=== PATIENT | male | born 1990 | race Asian ===

== ENCOUNTER 2019-12-22 05:58 | Observation (INO) | payer OTHER ==
[~2019-12-22] VITALS: Ht 172.7 cm; Wt 105.9 kg
[2019-12-22] MEDS ORDERED: ADVAIR (06:05)
[2019-12-22] MEDS ORDERED: ALBUTEROL MDI (06:05)
[2019-12-22] MEDS ORDERED: ZYRTEC (06:05)
--- NOTE | 2019-12-22 06:26 | NUR ---
rt to room
[2019-12-22] MEDS ORDERED: ALBUTEROL 0.5%, 20ML ONE (06:27)
--- NOTE | 2019-12-22 06:27 | NUR ---
THIS IS A 29 YO MALE COMING IN FOR ASTHMA EXACERBATION, WORSENING OVER PAST WEEK. PATIENT HAS AN ALBUTEROL INHALER AND ADVAIR, ALSO HAS NEBULIZER WITH NO RELIEF. NOTES NEW CAT AT HOME AND HAS IN THE PAST HAD SOME ISSUES REGARDING ALLERGY TO CATS. PATIENT PLACED ON 4L NC IN TRIAGE. PATIENT BACK TO ROOM. PLACED ON ALL MONITORING, PATIENT SINUS TACHY AT 116. SPO2 AT 94% ON 5L NC. INSPIRATORY AND EXPIRATORY WHEEZES AUSCULTATED THROUGHOUT, WORSE ON RIGHT SIDE. PATIENT SPEAKING IN 2-3 WORD SENTENCES. A&OX4. RT STARTED TREATMENT. PER RT, PATIENT TO BE ON CONTINUOUS NEBULIZER TREATMENT AT THIS TIME. CALL LIGHT IN REACH.
[2019-12-22] MEDS ORDERED: ALBUTEROL 0.5%, 20ML NPPBCONT PRN (06:30)
[2019-12-22] MEDS ORDERED: methylPREDNISolone SOD SUCC 125 MG/2 ML ONE (06:37)
--- NOTE | 2019-12-22 06:48 | NUR ---
PIV PLACED, IVF STARTED. PATIENT MEDICATED PER EMAR. POSTERIOR BREATH SOUNDS AUSCULTATED, BREATH SOUNDS HAVE LESS COARSE WHEEZES THROUGHOUT. PATIETN ON CONTINUOUS NEBULIZER TREATMENT
--- NOTE | 2019-12-22 06:54 | NUR ---
REPORT GIVEN TO COLBY EID. PLAN OF CARE DISCUSSED.
[2019-12-22] MEDS ORDERED: methylPREDNISolone SOD SUCC 125 MG/2 ML IVPush SCH (07:00)
[2019-12-22] MEDS ORDERED: SODIUM CHLORIDE 0.9% 1,000ML IVBOLUS ONE (07:00)
--- NOTE | 2019-12-22 07:22 | NUR ---
PT RESTING ON GURNING W/ NEBULIZER IN PLACE. TACHYCARDIC AND HYPERTENSIVE. ALL OTHER VS WDL. CALL LIGHT IN REACH. DENIES FURTHER NEEDS AT THIS TIME.
--- NOTE | 2019-12-22 07:37 | NUR ---
PT AMBULATED TO THE BATHROOM W/ A STEADY GAIT.
--- NOTE | 2019-12-22 08:45 | NUR ---
PT WAS 86% ON RA. PLACED ON 3L NC NOW 93%. NOTIFIED.
--- NOTE | 2019-12-22 09:20 | NUR ---
REPORT GIVEN TO ANGELICA BOWMAN. PT IS READY FOR TRANSPORT.
[2019-12-22] MEDS ORDERED: IBUPROFEN 600 MG TABLET PO PRN (09:30)
[2019-12-22] MEDS ORDERED: LABETALOL 5MG/ML, 20ML IVPush PRN ×2 (09:30→10:00)
[2019-12-22] MEDS ORDERED: hydrALAzine 20 MG/ML, 1ML IVPush PRN (09:30)
[2019-12-22] MEDS ORDERED: ONDANSETRON ODT 4 MG PO PRN (09:30)
[2019-12-22] MEDS ORDERED: ACETAMINOPHEN 325 MG TABLET PO PRN (09:30)
[2019-12-22 09:55] VITALS: BP 152/98
[2019-12-22] MEDS ORDERED: ALBUTEROL SULFATE 2.5MG/0.5ML NEB PRN (10:00)
[2019-12-22] MEDS ORDERED: ALBUTEROL SULFATE 2.5 MG/3 ML NPPB PRN (10:30)
[2019-12-22] MEDS: BUDESONIDE 0.5 MG/2 ML INHA INH SCH ×2 (10:30→19:44)
[2019-12-22] MEDS: CETIRIZINE 10 MG TABLET PO SCH (10:52)
[2019-12-22] MEDS ORDERED: ALBUTEROL SULFATE 2.5 MG/3 ML NPPB SCH (11:00)
[2019-12-22 13:19] VITALS: BP 152/97
[2019-12-22] MEDS ORDERED: ALBUTEROL SULFATE 2.5 MG/3 ML ONE (19:39)
[2019-12-22] MEDS: ALBUTEROL SULFATE 2.5 MG/3 ML NPPB SCH (19:48)
[2019-12-22 20:16] VITALS: BP 161/80
[2019-12-22] MEDS ORDERED: BUDESONIDE 0.5 MG/2 ML INHA NPPB SCH (21:00)
[2019-12-22] MEDS: SODIUM CHLORIDE FLUSH 10ML SYR IVF SCH (22:10)
[2019-12-23 02:44] VITALS: BP 130/77
[2019-12-23 05:15] LABS: BASOPHILS # (AUTO) 0.02 x10^3/uL (0-0.1); BASOPHILS % (AUTO) 0 % (0-1); EOSINOPHILS # (AUTO) 0.05 x10^3/uL (0-0.4); EOSINOPHILS % (AUTO) 1 % (1-7); LYMPHOCYTES % (AUTO) 16 % (22-44); MD NO; MEAN CORPUSCULAR HEMOGLOBIN 31.7 pg (27.5-34.5); MEAN CORPUSCULAR HGB CONC 33.4 g/dL (33.2-36.2); MEAN CORPUSCULAR VOLUME 94.9 fL (81-97); MEAN PLATELET VOLUME 7.4 fL (7.4-10.4); MONOCYTES # (AUTO) 1.05 x10^3/uL (0.2-0.8); MONOCYTES % (AUTO) 10 % (2-9); NEUTROPHILS # (AUTO) 7.55 x10^3/uL (1.8-6.8); NEUTROPHILS % (AUTO) 73 % (42-75); PLATELET COUNT 263 x10^3/uL (130-400); RED BLOOD COUNT 5.71 x10^6/uL (4.38-5.82); RED CELL DISTRIBUTION WIDTH 14.3 % (9.4-14.8)
[2019-12-23 05:17] LABS: CHLORIDE 109 mmol/L (98-107)
[2019-12-23 05:23] LABS: ANION GAP 5 mmol/L (5-15); CALCIUM 8.9 mg/dL (8.5-10.1); CREATININE 0.86 mg/dL (0.7-1.3)
[2019-12-23 07:18] VITALS: BP 126/72
[2019-12-23] MEDS: ALBUTEROL SULFATE 2.5 MG/3 ML NPPB SCH ×2 (08:00→11:24)
[2019-12-23] MEDS: BUDESONIDE 0.5 MG/2 ML INHA INH SCH (08:00)
[2019-12-23] MEDS: CETIRIZINE 10 MG TABLET PO SCH (09:31)
[2019-12-23] MEDS: SODIUM CHLORIDE FLUSH 10ML SYR IVF SCH (09:32)
[2019-12-23] MEDS ORDERED: LOSARTAN 25MG TABLET PO SCH (10:00)
[2019-12-23] MEDS ORDERED: LOSA25TA25 PO (10:53)
[2019-12-23] MEDS ORDERED: MONT10TA11 PO (10:53)
[2019-12-23 12:05] VITALS: BP 160/64
== END 2019-12-23 12:50 | disposition home or self-care (01) ==
LOC: ED 07:34 → 4NE 09:13 → DCLOUNGE 12-23 12:42
PROVIDERS: ADMIT Family Medicine; ATTEND Family Medicine
DX: J45.32 Mild persistent asthma with status asthmaticus (principal); J96.01 Acute respiratory failure with hypoxia; R00.0 Tachycardia, unspecified; I10 Essential (primary) hypertension; D75.1 Secondary polycythemia; F12.10 Cannabis abuse, uncomplicated; Z79.899 Other long term (current) drug therapy; Z87.891 Personal history of nicotine dependence; Z91.048 Other nonmedicinal substance allergy status
CPT/HCPCS: 36415; 71045; 80048; 82668; 85025; 93005; 94640; 94644; 96374; 99285; G0378; J2930; J7030; J7512; J7611; J7613; J7626